=== PATIENT | male | born 1975 | race Caucasian/White ===

== ENCOUNTER 2022-01-28 21:12 | Inpatient (IN) | payer OTHER, BC ==
[2022-01-28] MEDS ORDERED: BENZOCAINE/MENTHOL (CHLORASEPTIC ) LOZENGE MM PRN (21:39)
[2022-01-28] MEDS ORDERED: guaiFENesin 200 MG/10 ML 10 ML UNIT-DOSE CUPS PO PRN (21:39)
[2022-01-28] MEDS ORDERED: NICOTINE POLACRILEX 2 MG GUM BUC PRN (21:39)
[2022-01-28] MEDS ORDERED: LOPERAMIDE HCL 2 MG CAPSULE PO PRN (21:39)
[2022-01-28] MEDS ORDERED: IBUPROFEN 600 MG TABLET (FP) PO PRN (21:39)
[2022-01-28] MEDS ORDERED: DICYCLOMINE HCL 10 MG CAPSULE PO PRN (21:39)
[2022-01-28] MEDS ORDERED: IBUPROFEN 400 MG TABLET (FP) PO PRN (21:39)
[2022-01-28] MEDS ORDERED: MAG HYDROX/AL HYDROX/SIMETH 30 ML UNIT-DOSE CUP PO PRN (21:39)
[2022-01-28] MEDS ORDERED: MAGNESIUM CITRATE 300 ML BOTTLE PO PRN (21:39)
[2022-01-28] MEDS ORDERED: NALOXONE HCL (KLOXXADO) 8 MG SPRAY NS PRN (21:39)
[2022-01-28] MEDS ORDERED: P-EPHED 60MG/TRIPROLIDI 2.5MG TABLET PO PRN (21:39)
[2022-01-28] MEDS ORDERED: MAGNESIUM HYDROX 2400MG/30ML ORAL SUSPENSION 30 ML CUP PO PRN (21:39)
[2022-01-28] MEDS ORDERED: ACETAMINOPHEN 325 MG TABLET (FP) PO PRN ×2 (21:39)
[2022-01-28] MEDS ORDERED: BISMUTH SUBSALICYLATE 524 MG/30 ML PO PRN (21:39)
[2022-01-28] MEDS ORDERED: chlordiazePOXIDE HCL 10 MG CAPSULE PO PRN (22:00)
[2022-01-28 22:05] VITALS: BMI 27.0
[2022-01-28] MEDS: MELATONIN 5 MG TABLETS PO SCH (23:11)
[2022-01-28] MEDS: chlordiazePOXIDE HCL 10 MG CAPSULE PO SCH (23:12)
[2022-01-28] MEDS: THIAMINE HCL 100 MG TABLET (FP) PO SCH (23:12)
[2022-01-28] MEDS ORDERED: cloNIDine HCL 0.1 MG TABLET PO ONE (23:30)
[2022-01-29] MEDS: chlordiazePOXIDE HCL 10 MG CAPSULE PO SCH ×4 (05:14→22:04)
[2022-01-29] MEDS ORDERED: amLODIPine BESYLATE 5 MG TABLET (FP) PO SCH (10:00)
[2022-01-29] MEDS: PRENATAL VITAMINS W/ FOLIC ACID TABLET (FP) PO SCH (10:27)
[2022-01-29] MEDS: LOSARTAN POTASSIUM 50 MG TABLET PO SCH (10:27)
[2022-01-29] MEDS: NICOTINE 21 MG/24 HOURS TOPICAL PATCH TD SCH (10:28)
[2022-01-29 11:04] LABS: HEMATOCRIT 41.3 % (35.4-49); MCH 31.8 pg (25.7-33.7); MCHC 33.9 g/dl (32.0-35.9); MEAN PLT VOLUME 9.3 fl (7.5-11.1); PLATELET COUNT 112 10^3/uL (134-434); RBC 4.39 M/mm3 (4.00-5.60); RDW 14.4 % (11.9-15.9); WHITE BLOOD COUNT 6.8 K/mm3 (4.0-10.0)
[2022-01-29 11:08] LABS: CALCIUM 9.5 mg/dL (8.5-10.1)
[2022-01-29 11:09] LABS: ALBUMIN 4.1 g/dl (3.4-5.0); BLOOD UREA NITROGEN 9.9 mg/dL (7-18)
[2022-01-29 11:11] LABS: CREATININE 0.8 mg/dL (0.55-1.3)
[2022-01-29 11:13] LABS: BILIRUBIN,TOTAL 0.7 mg/dL (0.2-1); TOT PROT 8.2 g/dl (6.4-8.2)
[2022-01-29] MEDS: ONDANSETRON *ODT* 4 MG TABLET SL PRN ×2 (12:32→23:03)
[2022-01-29] MEDS: hydrOXYzine PAMOATE 25 MG CAPSULE (FP) PO PRN ×3 (12:32→22:05)
[2022-01-29 17:30] VITALS: RESP 18
[2022-01-29] MEDS ORDERED: LISINOPRIL 5 MG TABLET PO ONE (21:31)
[2022-01-29] MEDS: THIAMINE HCL 100 MG TABLET (FP) PO SCH (22:04)
[2022-01-29] MEDS: MELATONIN 5 MG TABLETS PO SCH (23:00)
[2022-01-29] MEDS ORDERED: cloNIDine HCL 0.1 MG TABLET PO ONE (23:36)
[2022-01-30] MEDS: hydrOXYzine PAMOATE 25 MG CAPSULE (FP) PO PRN (06:01)
[2022-01-30] MEDS ORDERED: amLODIPine BESYLATE 10 MG TABLET (FP) PO SCH (06:30)
[2022-01-30 09:56] VITALS: BP 155/84; PULSE 81; TEMP 97.9
[2022-01-30] MEDS: LOSARTAN POTASSIUM 50 MG TABLET PO SCH (10:10)
[2022-01-30] MEDS: NICOTINE 21 MG/24 HOURS TOPICAL PATCH TD SCH (10:11)
[2022-01-30] MEDS: PRENATAL VITAMINS W/ FOLIC ACID TABLET (FP) PO SCH (10:11)
[2022-01-30] MEDS: chlordiazePOXIDE HCL 10 MG CAPSULE PO SCH (10:11)
[2022-01-30] MEDS: ONDANSETRON *ODT* 4 MG TABLET SL PRN (10:12)
== END 2022-01-30 11:42 | disposition home or self-care (01) | DRG 775 ==
LOC: YASAS 21:12 → Y3N 22:46
PROVIDERS: ADMIT Allergy & Immunology; ATTEND Surgery
PROC: HZ2ZZZZ Detoxification Services for Substance Abuse Treatment (ICD-10-PCS; principal; 2022-01-28)
DX: F10.230 Alcohol dependence with withdrawal, uncomplicated (principal); F13.20 Sedative, hypnotic or anxiolytic dependence, uncomplicated; F17.210 Nicotine dependence, cigarettes, uncomplicated; F19.24 Other psychoactive substance dependence with psychoactive substance-induced mood disorder; I10 Essential (primary) hypertension; R74.8 Abnormal levels of other serum enzymes; Z86.69 Personal history of other diseases of the nervous system and sense organs; Z91.81 History of falling
CPT/HCPCS: 36415; 80053; 85027; 86780; 93005; 93010; C9803-CS; Q0162; U0003; U0005